=== PATIENT | male | born 1950 | race Caucasian/White ===

== ENCOUNTER 2017-10-24 11:00 | Outpatient (CLI) | payer OTHER | END 2017-10-24 11:54 | disposition home or self-care (01) | LOC: LAB 11:00 | DX: D51.3 Other dietary vitamin B12 deficiency anemia (principal); D69.6 Thrombocytopenia, unspecified ==

== ENCOUNTER 2019-01-19 10:51 | Outpatient (CLI) | payer OTHER | END 2019-01-19 11:02 | disposition home or self-care (01) | LOC: RAD 10:51 | DX: R07.89 Other chest pain (principal) ==

== ENCOUNTER 2019-11-10 11:15 | Outpatient (CLI) | payer OTHER | END 2019-11-10 11:18 | disposition home or self-care (01) | LOC: RAD 11:15 | PROVIDERS: ATTEND Orthopaedic Surgery | DX: R07.89 Other chest pain (principal) ==

== ENCOUNTER 2020-04-17 11:39 | Outpatient (CLI) | payer OTHER | END 2020-04-17 12:05 | disposition home or self-care (01) | LOC: RAD 11:39 | PROVIDERS: ATTEND Orthopaedic Surgery | DX: M75.32 Calcific tendinitis of left shoulder (principal); M25.512 Pain in left shoulder ==

== ENCOUNTER 2023-09-01 09:29 | Outpatient (CLI) | payer OTHER | END 2023-09-01 09:35 | disposition home or self-care (01) | LOC: TOM 09:29 | PROVIDERS: ATTEND Internal Medicine | DX: J44.9 Chronic obstructive pulmonary disease, unspecified (principal) ==

== ENCOUNTER 2023-10-01 09:46 | Outpatient (CLI) | payer OTHER | END 2023-10-01 09:50 | disposition home or self-care (01) | LOC: SONOGRAMA 09:46 | PROVIDERS: ATTEND Internal Medicine | DX: N40.1 Benign prostatic hyperplasia with lower urinary tract symptoms (principal); I10 Essential (primary) hypertension ==

== ENCOUNTER 2024-07-04 09:37 | Emergency (ER) | payer OTHER ==
[~2024-07-04] VITALS: Ht 177.8 cm; Wt 74.8 kg
[2024-07-04] MEDS ORDERED: ATORVASTATIN CA40 MG PO (09:49)
[2024-07-04] MEDS ORDERED: NIFEDIPINE20 MG PO (09:49)
[2024-07-04] MEDS ORDERED: BAYER THERAPY325 MG PO (09:49)
[2024-07-04 11:23] LABS: HEMATOCRIT 42.2 % (39.0-48.0); HEMOGLOBIN 14.5 g/dL (13-16.00); MEAN CELL VOLUME 101.7 fL (80.0-100.00); MEAN CORPUSCULAR HEMOGLOBIN 34.9 pg (27.00-32.0); MEAN CORPUSCULAR HGB CONC 34.4 g/dl (32.0-36.0); RED BLOOD COUNT 4.15 M/uL (4.00-6.00); RED CELL DISTRIBUTION WIDTH 12.7 % (11.5-14.5)
[2024-07-04 11:25] LABS: PLATELET COUNT 138 K/uL (150-450)
[2024-07-04 11:32] LABS: PH,URINE 5.5 (5.0-8.0); URINE APPEARANCE Turbid; URINE BILIRRUBIN Small (NEGATIVE); URINE BLOOD Small; URINE COLOR Red; URINE GLUCOSE Negative (NEGATIVE); URINE KETONE Negative (NEGATIVE); URINE LEUKOCYTE Moderate; URINE NITRATE Positive; URINE PROTEIN 30 (NEGATIVE); URINE UROBILINOGEN 0.2 E.U./dl
[2024-07-04 11:36] LABS: URINE BACTERIA 687.8 uL (0.0-1933); URINE EPITHELIAL CELLS 5.3 uL (0.0-38.8); URINE WBC 172.8 uL (0.0-23.2)
[2024-07-04 11:44] LABS: URINE RBC > 10558.9 uL (0.0-20.8)
[2024-07-04 11:56] LABS: ALBUMIN 4.1 gm/dL (3.4-5.0); BILIRUBIN TOTAL 1.21 mg/dL (0.3-1.2); CALCIUM 10.3 mg/dL (8.5-10.1); CREATININE SERUM 0.89 mg/dL (0.70-1.30); GFR 83.33; GLOBULINA 3.4 G/DL (2.4-3.5); TOTAL PROTEIN 7.5 gm/dL (6.4-8.2)
[2024-07-04 11:57] LABS: POTASSIUM 4.5 mEq/L (3.5-5.1)
== END 2024-07-04 16:07 | disposition home or self-care (01) ==
LOC: ER 09:37
PROVIDERS: Emergency Medicine
DX: N39.0 Urinary tract infection, site not specified (principal); N32.89 Other specified disorders of bladder; R31.9 Hematuria, unspecified; I10 Essential (primary) hypertension
CPT/HCPCS: 36415; 74177; 99284; Q9965

== ENCOUNTER 2024-08-16 08:55 | Outpatient (CLI) | payer OTHER ==
[~2024-08-16 08:55] MED LIST: ATORVASTATIN CA40 MG PO; BAYER THERAPY325 MG PO; NIFEDIPINE20 MG PO
== END 2024-08-16 09:01 | disposition home or self-care (01) ==
LOC: SONOGRAMA 08:55
PROVIDERS: ATTEND Internal Medicine
DX: N40.1 Benign prostatic hyperplasia with lower urinary tract symptoms (principal); N39.0 Urinary tract infection, site not specified

== ENCOUNTER 2025-06-06 13:35 | Outpatient (CLI) | payer OTHER | END 2025-06-06 13:37 | disposition home or self-care (01) | LOC: RAD 13:35 | PROVIDERS: ATTEND Internal Medicine | DX: R07.9 Chest pain, unspecified (principal) ==